=== PATIENT | male | born 1980 | race Caucasian/White ===

== ENCOUNTER → 2023-02-21 | Outpatient (CLI) | payer OTHER | END | disposition home or self-care (01) | LOC: MRI 10:43 | PROVIDERS: ATTEND Family Medicine Adult Medicine | DX: M19.011 Primary osteoarthritis, right shoulder (principal); M75.32 Calcific tendinitis of left shoulder; R60.0 Localized edema; M25.812 Other specified joint disorders, left shoulder; M77.8 Other enthesopathies, not elsewhere classified | CPT/HCPCS: 73221 ==